=== PATIENT | male | born 1930 | race Caucasian/White ===

== ENCOUNTER 2017-09-08 20:46 | Inpatient (IN) | payer MEDICARE, OTHER ==
[2017-09-08] MEDS: SOD CHLORIDE 0.9% 500 ML IV ×2 (21:41→23:19)
[2017-09-08] MEDS: ONDANSETRON 4 MG INJ IV (21:41)
[2017-09-08 21:49] LABS: ADD MAN DIFF? NO
[2017-09-08 21:51] LABS: BASOPHILS % 0.1 % (0.0-2.0); EOSINOPHILS # 0.1 10^3/ul (0.0-0.5); EOSINOPHILS % 1.1 % (0.0-7.0); HEMATOCRIT 32.7 % (42.0-52.0); HEMOGLOBIN 11.6 g/dl (14.0-18.0); LYMPHOCYTES % 20.8 % (15.0-51.0); MEAN CORPUSCULAR HEMOGLOBIN 33.9 pg (29.0-33.0); MEAN CORPUSCULAR HGB CONC 35.5 g/dl (32.0-37.0); MEAN CORPUSCULAR VOLUME 95.6 fl (82.0-101.0); MEAN PLATELET VOLUME 10.8 fl (7.4-10.4); MONOCYTE # 0.7 10^3/ul (0.3-0.9); MONOCYTES % 7.6 % (0.0-11.0); NEUTROPHIL # 6.6 10^3/ul (1.6-7.5); NEUTROPHILS % 68.8 % (39.0-77.0); PLATELET COUNT 146 10^3/UL (140-415); RED BLOOD COUNT 3.42 10^6/ul (4.70-6.10); RED CELL DISTRIBUTION WIDTH 16.7 % (11.5-14.5)
[2017-09-08 21:51] LABS: WHITE BLOOD COUNT 9.5 10^3/ul (4.8-10.8)
[2017-09-08 22:11] LABS: AMMONIA 80 umol/l (9-30)
[2017-09-08 22:13] LABS: ALANINE AMINOTRANSFERASE 49 IU/L (13-69); ALKALINE PHOSPHATASE 274 IU/L (42-121); ANION GAP 16 (8-16); ASPARTATE AMINO TRANSFERASE 69 IU/L (15-46); BILIRUBIN,INDIRECT 1.5 mg/dl (0-1.1); BILIRUBIN,TOTAL 2.5 mg/dl (0.2-1.3); BLOOD UREA NITROGEN 33 mg/dl (7-20); CALCIUM 7.7 mg/dl (8.4-10.2); CARBON DIOXIDE 25 mmol/L (21-31); CHLORIDE 97 mmol/L (97-110); CREATININE 1.87 mg/dl (0.61-1.24); GLUCOSE 136 mg/dl (70-220); POTASSIUM 3.6 mmol/L (3.5-5.1); SODIUM 134 mmol/L (135-144)
[2017-09-08 22:15] LABS: LACTIC ACID 5.5 mmol/L (0.5-2.0)
[2017-09-08 22:21] LABS: INR 1.65; PROTIME 19.9 Sec (11.9-14.9); PT RATIO 1.6
[2017-09-08 22:22] LABS: ACETAMINOPHEN < 10.0 ug/ml (10.0-30.0); ETHANOL < 10.0 mg/dl; PARTIAL THROMBOPLASTIN TIME 48.6 Sec (25.0-35.0); SALICYLATE < 1.0 mg/dl (5.0-30.0)
[2017-09-08 22:23] LABS: TROPONIN-I 0.039 ng/ml (0.00-0.12)
[2017-09-08 22:54] LABS: ADD UMIC YES; UR ASCORBIC ACID NEGATIVE (NEGATIVE); UR BACTERIA MANY /HPF (NONE SEEN); UR BILIRUBIN (Dip) 1+ mg/dL (NEGATIVE); UR BLOOD (Dip) 3+ mg/dL (NEGATIVE); UR CLARITY CLOUDY (CLEAR); UR COLOR AMBER (YELLOW); UR GLUCOSE (Dip) NEGATIVE (NEGATIVE); UR KETONES (Dip) NEGATIVE (NEGATIVE); UR LEUKOCYTE ESTERASE (Dip) NEGATIVE Leu/ul (NEGATIVE); UR MUCUS MODERATE /HPF (NONE SEEN); UR NITRITE (Dip) NEGATIVE (NEGATIVE); UR RBC 20 /HPF (0-5); UR SPECIFIC GRAVITY (Dip) 1.014 (1.003-1.030); UR TOTAL PROTEIN (Dip) 1+ mg/dl (NEGATIVE); UR UROBILINOGEN (Dip) 2+ mg/dL (NEGATIVE); UR WBC 52 /HPF (0-5)
[2017-09-08 23:00] LABS: FREE THYROXINE INDEX (Calc) 2.51 ug/ml (0.65-3.89)
[2017-09-08 23:11] LABS: OPIATES Negative (NEGATIVE); T3 UPTAKE 61.3 % (23.5-40.5); T4 (THYROXINE) 4.1 ug/dl (5.5-11.0)
[2017-09-08 23:12] LABS: AMPHETAMINE/METHAMPHETAMINE Negative (NEGATIVE); BARBITURATES Negative (NEGATIVE); BENZODIAZEPINES Negative (NEGATIVE)
[2017-09-08 23:13] LABS: CANNABINOIDS Negative (NEGATIVE); COCAINE Negative (NEGATIVE)
[2017-09-09] MEDS ORDERED: ACETAMINOPHEN 325 MG TAB PO
[2017-09-09] MEDS: CEFEPIME 2GM/50 ML (PMX) 50 ML IVPB (00:01)
[2017-09-09] MEDS: LACTULOSE 30ML CUP NGT ×4 (00:49→17:37)
[2017-09-09] MEDS: SOD CHLORIDE 0.9% 1,000 ML IV (00:49)
[2017-09-09] MEDS: ASPIRIN 300 MG SUPP PR (00:51)
[2017-09-09 04:45] LABS: LACTIC ACID 4.2 mmol/L (0.5-2.0)
[2017-09-09] MEDS ORDERED: ALBUTEROL/IPRATROPIUM (NEB) 3 ML AMP HHN (05:30)
[2017-09-09] MEDS ORDERED: ONDANSETRON 4 MG INJ IV ×2 (05:30)
[2017-09-09] MEDS ORDERED: morphine 2 MG INJ IV (05:30)
[2017-09-09] MEDS ORDERED: NACL 0.9% 3 ML SYG IV (05:30)
[2017-09-09] MEDS: FUROSEMIDE 40 MG TAB PO (06:00)
[2017-09-09] MEDS: ALBUMIN HUMAN 25% 100 ML IV ×2 (06:12→14:12)
[2017-09-09] MEDS: LANSOPRAZOLE 30 MG CAP NGT (06:21)
[2017-09-09] MEDS: LEVOTHYROXINE 125 MCG TAB PO (06:28)
[2017-09-09] MEDS ORDERED: PANTOPRAZOLE (EC) 40 MG TAB PO (07:25)
[2017-09-09 07:27] LABS: ADD MAN DIFF? NO
[2017-09-09 07:34] LABS: WHITE BLOOD COUNT 8.4 10^3/ul (4.8-10.8)
[2017-09-09 07:34] LABS: BASOPHILS % 0.2 % (0.0-2.0); EOSINOPHILS # 0.1 10^3/ul (0.0-0.5); HEMATOCRIT 28.4 % (42.0-52.0); LYMPHOCYTES # 1.3 10^3/ul (0.8-2.9); LYMPHOCYTES % 15.1 % (15.0-51.0); MEAN CORPUSCULAR HEMOGLOBIN 33.9 pg (29.0-33.0); MEAN CORPUSCULAR HGB CONC 35.2 g/dl (32.0-37.0); MEAN CORPUSCULAR VOLUME 96.3 fl (82.0-101.0); MEAN PLATELET VOLUME 10.3 fl (7.4-10.4); MONOCYTE # 0.6 10^3/ul (0.3-0.9); MONOCYTES % 6.8 % (0.0-11.0); NEUTROPHIL # 6.4 10^3/ul (1.6-7.5); NEUTROPHILS % 75.6 % (39.0-77.0); PLATELET COUNT 113 10^3/UL (140-415); RED BLOOD COUNT 2.95 10^6/ul (4.70-6.10); RED CELL DISTRIBUTION WIDTH 16.7 % (11.5-14.5)
[2017-09-09] MEDS ORDERED: PENDING SANTYL ORDER FOR WOUND CARE XX (08:00)
[2017-09-09 08:06] LABS: ALANINE AMINOTRANSFERASE 51 IU/L (13-69); ALBUMIN/GLOBULIN RATIO 0.57; ALKALINE PHOSPHATASE 222 IU/L (42-121); ANION GAP 16 (8-16); ASPARTATE AMINO TRANSFERASE 61 IU/L (15-46); BILIRUBIN,INDIRECT 1.5 mg/dl (0-1.1); BILIRUBIN,TOTAL 2.7 mg/dl (0.2-1.3); BLOOD UREA NITROGEN 33 mg/dl (7-20); CALCIUM 7.3 mg/dl (8.4-10.2); CARBON DIOXIDE 23 mmol/L (21-31); CHLORIDE 104 mmol/L (97-110); CREATININE 1.67 mg/dl (0.61-1.24); GLUCOSE 130 mg/dl (70-220); POTASSIUM 3.5 mmol/L (3.5-5.1); SODIUM 139 mmol/L (135-144); TOTAL PROTEIN 5.5 g/dl (6.1-8.1)
[2017-09-09 08:11] LABS: LACTIC ACID 3.8 mmol/L (0.5-2.0)
[2017-09-09] MEDS: ASPIRIN (EC) 81 MG TAB PO (08:45)
[2017-09-09] MEDS: FINASTERIDE 5 MG TAB PO (08:45)
[2017-09-09] MEDS: CEFTRIAXONE 1 GM/50 ML (PMX) 50 ML IVPB ×2 (08:45→21:03)
[2017-09-09] MEDS: RIFAXIMIN 550 MG TAB PO ×2 (08:45→21:11)
[2017-09-09] MEDS: POTASSIUM CHLORIDE (SR) 10 MEQ TAB PO ×2 (08:46→21:11)
[2017-09-09] MEDS: AMIODARONE 200 MG TAB PO (08:49)
[2017-09-09] MEDS: SOD CHLORIDE 0.9% 250 ML IV (08:58)
[2017-09-09 09:50] LABS: LACTIC ACID 3.4 mmol/L (0.5-2.0)
[2017-09-10] MEDS: LACTULOSE 30ML CUP NGT ×4 (00:45→18:22)
[2017-09-10] MEDS: LANSOPRAZOLE 30 MG CAP NGT (06:01)
[2017-09-10] MEDS: LEVOTHYROXINE 125 MCG TAB PO (06:01)
[2017-09-10 07:46] LABS: ADD MAN DIFF? NO
[2017-09-10 07:50] LABS: ABNORMAL IP MESSAGE 1; BASOPHILS % 0.3 % (0.0-2.0); EOSINOPHILS # 0.1 10^3/ul (0.0-0.5); EOSINOPHILS % 1.9 % (0.0-7.0); HEMATOCRIT 24.4 % (42.0-52.0); HEMOGLOBIN 8.5 g/dl (14.0-18.0); LYMPHOCYTES # 0.9 10^3/ul (0.8-2.9); LYMPHOCYTES % 15.5 % (15.0-51.0); MEAN CORPUSCULAR HGB CONC 34.8 g/dl (32.0-37.0); MEAN CORPUSCULAR VOLUME 97.6 fl (82.0-101.0); MEAN PLATELET VOLUME 10.8 fl (7.4-10.4); MONOCYTE # 0.4 10^3/ul (0.3-0.9); MONOCYTES % 6.6 % (0.0-11.0); NEUTROPHIL # 4.4 10^3/ul (1.6-7.5); NEUTROPHILS % 74.8 % (39.0-77.0); PLATELET COUNT 82 10^3/UL (140-415); POSITIVE DIFF @See below; RED CELL DISTRIBUTION WIDTH 16.8 % (11.5-14.5)
[2017-09-10 07:50] LABS: WHITE BLOOD COUNT 5.9 10^3/ul (4.8-10.8)
[2017-09-10 08:14] LABS: ANION GAP 14 (8-16); BLOOD UREA NITROGEN 33 mg/dl (7-20); CALCIUM 7.6 mg/dl (8.4-10.2); CARBON DIOXIDE 26 mmol/L (21-31); CHLORIDE 106 mmol/L (97-110); CREATININE 1.58 mg/dl (0.61-1.24); GLUCOSE 111 mg/dl (70-220); MAGNESIUM 2.2 mg/dl (1.7-2.5); PHOSPHORUS 3.7 mg/dl (2.5-4.9); SODIUM 143 mmol/L (135-144)
[2017-09-10] MEDS: RIFAXIMIN 550 MG TAB PO ×2 (08:14→20:31)
[2017-09-10] MEDS: CEFTRIAXONE 1 GM/50 ML (PMX) 50 ML IVPB ×2 (08:14→20:29)
[2017-09-10] MEDS: FINASTERIDE 5 MG TAB PO (08:14)
[2017-09-10] MEDS: ASPIRIN (EC) 81 MG TAB PO (08:14)
[2017-09-10] MEDS: POTASSIUM CHLORIDE (SR) 10 MEQ TAB PO ×2 (08:14→20:31)
[2017-09-10] MEDS: AMIODARONE 200 MG TAB PO (08:15)
[2017-09-10] MEDS: ALBUMIN HUMAN 25% 100 ML IV ×2 (08:25→18:23)
[2017-09-10 12:54] LABS: ADD UMIC YES; UR ASCORBIC ACID NEGATIVE (NEGATIVE); UR BILIRUBIN (Dip) NEGATIVE (NEGATIVE); UR BLOOD (Dip) 2+ mg/dL (NEGATIVE); UR CLARITY SLIGHTLY CLOUDY (CLEAR); UR COLOR AMBER (YELLOW); UR GLUCOSE (Dip) NEGATIVE (NEGATIVE); UR GRANULAR CAST FEW /HPF (NONE SEEN); UR HYALINE CAST FEW /HPF (NONE SEEN); UR KETONES (Dip) NEGATIVE (NEGATIVE); UR LEUKOCYTE ESTERASE (Dip) NEGATIVE Leu/ul (NEGATIVE); UR NITRITE (Dip) NEGATIVE (NEGATIVE); UR RBC 9 /HPF (0-5); UR SPECIFIC GRAVITY (Dip) 1.015 (1.003-1.030); UR TOTAL PROTEIN (Dip) 1+ mg/dl (NEGATIVE); UR UROBILINOGEN (Dip) 2+ mg/dL (NEGATIVE); UR WBC 22 /HPF (0-5)
[2017-09-10 13:07] LABS: CREATININE,URINE RANDOM 93.33 mg/dl (20-370)
[2017-09-10] MEDS: POTASSIUM CHLORIDE 20 MEQ POWDER FOR ORAL SOLN NGT ×2 (13:10→18:23)
[2017-09-10 14:03] LABS: SODIUM,URINE RANDOM < 13 mmol/L (30-90)
[2017-09-10] MEDS: LIDOCAINE 1% (MPF) 5 ML VIAL SC (17:25)
[2017-09-10] MEDS: SOD CHLORIDE 0.9% 100 ML (18:10)
[2017-09-11] MEDS: LACTULOSE 30ML CUP NGT ×4 (01:28→17:30)
[2017-09-11] MEDS: ALBUMIN HUMAN 25% 100 ML IV (01:30)
[2017-09-11] MEDS: ACETAMINOPHEN 325 MG TAB PO (04:05)
[2017-09-11] MEDS: LANSOPRAZOLE 30 MG CAP NGT (06:26)
[2017-09-11] MEDS: LEVOTHYROXINE 125 MCG TAB PO (06:26)
[2017-09-11 07:00] LABS: ADD MAN DIFF? NO
[2017-09-11 07:09] LABS: WHITE BLOOD COUNT 5.1 10^3/ul (4.8-10.8)
[2017-09-11 07:09] LABS: ABNORMAL IP MESSAGE 1; BASOPHILS % 0.2 % (0.0-2.0); EOSINOPHILS # 0.1 10^3/ul (0.0-0.5); HEMATOCRIT 23.3 % (42.0-52.0); LYMPHOCYTES % 19.1 % (15.0-51.0); MEAN CORPUSCULAR HEMOGLOBIN 33.8 pg (29.0-33.0); MEAN CORPUSCULAR HGB CONC 34.3 g/dl (32.0-37.0); MEAN CORPUSCULAR VOLUME 98.3 fl (82.0-101.0); MONOCYTE # 0.3 10^3/ul (0.3-0.9); MONOCYTES % 6.5 % (0.0-11.0); NEUTROPHIL # 3.6 10^3/ul (1.6-7.5); PLATELET COUNT 71 10^3/UL (140-415); POSITIVE DIFF @See below; RED BLOOD COUNT 2.37 10^6/ul (4.70-6.10); RED CELL DISTRIBUTION WIDTH 17.5 % (11.5-14.5)
[2017-09-11 07:44] LABS: ANION GAP 15 (8-16); BLOOD UREA NITROGEN 32 mg/dl (7-20); CALCIUM 8.3 mg/dl (8.4-10.2); CARBON DIOXIDE 26 mmol/L (21-31); CHLORIDE 109 mmol/L (97-110); CREATININE 1.59 mg/dl (0.61-1.24); GLUCOSE 113 mg/dl (70-220); MAGNESIUM 2.4 mg/dl (1.7-2.5); PHOSPHORUS 2.9 mg/dl (2.5-4.9); POTASSIUM 4.2 mmol/L (3.5-5.1); SODIUM 146 mmol/L (135-144)
[2017-09-11] MEDS: POTASSIUM CHLORIDE (SR) 10 MEQ TAB PO (08:26)
[2017-09-11] MEDS: RIFAXIMIN 550 MG TAB PO ×2 (08:26→21:56)
[2017-09-11] MEDS: ASPIRIN (EC) 81 MG TAB PO (08:26)
[2017-09-11] MEDS: CEFTRIAXONE 1 GM/50 ML (PMX) 50 ML IVPB ×2 (08:26→21:55)
[2017-09-11] MEDS: FINASTERIDE 5 MG TAB PO (08:26)
[2017-09-11] MEDS: AMIODARONE 200 MG TAB PO (08:27)
[2017-09-11] MEDS ORDERED: SPIRONOLACTONE 50 MG TAB PO (13:00)
[2017-09-11] MEDS: FUROSEMIDE 40 MG TAB NGT (15:37)
[2017-09-11] MEDS: SPIRONOLACTONE 50 MG TAB NGT (15:38)
[2017-09-12] MEDS: LACTULOSE 30ML CUP NGT ×4 (01:05→18:00)
[2017-09-12] MEDS: LEVOTHYROXINE 125 MCG TAB PO (05:55)
[2017-09-12] MEDS: FUROSEMIDE 40 MG TAB NGT (05:56)
[2017-09-12] MEDS: LANSOPRAZOLE 30 MG CAP NGT (05:56)
[2017-09-12] MEDS: SPIRONOLACTONE 50 MG TAB NGT (05:57)
[2017-09-12] MEDS: FINASTERIDE 5 MG TAB PO (10:18)
[2017-09-12] MEDS: RIFAXIMIN 550 MG TAB PO ×2 (10:18→20:09)
[2017-09-12] MEDS: ASPIRIN (EC) 81 MG TAB PO (10:18)
[2017-09-12] MEDS: POTASSIUM CHLORIDE 20 MEQ POWDER FOR ORAL SOLN PO ×2 (10:19→20:09)
[2017-09-12] MEDS: CEFTRIAXONE 1 GM/50 ML (PMX) 50 ML IVPB ×2 (10:19→20:09)
[2017-09-12] MEDS: AMIODARONE 200 MG TAB PO (10:20)
[2017-09-12] MEDS: ACETAMINOPHEN 325 MG TAB PO (10:30)
[2017-09-13 06:41] LABS: CREATININE, RANDOM URINE 101 mg/dL (20-370); MICROALBUMIN 3.7 mg/dL; MICROALBUMIN/CREATININE RATIO 37 (<30)
== END 2017-09-12 20:45 | disposition hospice, home (50) | DRG 442 ==
LOC: TEL 23:38 → E/R 20:46
PROVIDERS: Internal Medicine
PROC: 02HV33Z Insertion of Infusion Device into Superior Vena Cava, Percutaneous Approach (ICD-10-PCS; principal; 2017-09-10)
DX: K72.90 Hepatic failure, unspecified without coma (principal); N17.9 Acute kidney failure, unspecified; E87.2 Acidosis; R65.10 Systemic inflammatory response syndrome (SIRS) of non-infectious origin without acute organ dysfunction; N39.0 Urinary tract infection, site not specified; E11.9 Type 2 diabetes mellitus without complications; I12.9 Hypertensive chronic kidney disease with stage 1 through stage 4 chronic kidney disease, or unspecified chronic kidney disease; B95.2 Enterococcus as the cause of diseases classified elsewhere; D63.8 Anemia in other chronic diseases classified elsewhere; K74.60 Unspecified cirrhosis of liver; E03.9 Hypothyroidism, unspecified; Z95.0 Presence of cardiac pacemaker; Z85.46 Personal history of malignant neoplasm of prostate; N18.9 Chronic kidney disease, unspecified; N40.0 Benign prostatic hyperplasia without lower urinary tract symptoms; N41.9 Inflammatory disease of prostate, unspecified; B96.20 Unspecified Escherichia coli [E. coli] as the cause of diseases classified elsewhere
CPT/HCPCS: 36415; 36569; 70450; 71045; 76705; 76775; 76937; 80048; 80053; 80306; 80307; 81001; 81003; 82043; 82140; 82962; 83605; 83735; 84100; 84155; 84300; 84436; 84443; 84479; 84484; 85025; 85610; 85730; 87040; 87081; 87086; 92526; 92610; 93005; 96374; 96375; 97110; 97162; 97530; 99285-25